=== PATIENT | male | born 1985 ===

== ENCOUNTER 2017-08-28 12:34 | Emergency (ER) | payer OTHER, MEDICAID ==
[2017-08-28 13:03] VITALS: PULSE 66; RESP 18; TEMP 98.1; O2SAT 99
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
--- NOTE | 2017-08-28 14:44 | RAD ---
PROCEDURE: Cervical Spine Radiographs. HISTORY: Pain. COMPARISON: None. FINDINGS: BONES: Alignment maintained. No fracture. Dens Intact. DISC SPACES: Normal. SOFT TISSUES: Normal. No prevertebral soft tissue swelling. OTHER FINDINGS: None. IMPRESSION: Normal cervical spine radiographs
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
== END 2017-08-28 15:22 | disposition home or self-care (01) ==
LOC: H.ER 12:34
DX: M54.9 Dorsalgia, unspecified (principal); V43.52XA Car driver injured in collision with other type car in traffic accident, initial encounter; Y92.410 Unspecified street and highway as the place of occurrence of the external cause